=== PATIENT | male | born 1985 | race Caucasian/White ===

== ENCOUNTER 2017-03-08 19:36 | Emergency (ER) | payer SELFPAY ==
[~2017-03-08] VITALS: Ht 167.6 cm; Wt 71.0 kg
[2017-03-08 19:38] VITALS: BP 146/78; PULSE 86; RESP 16; TEMP 98.5; O2SAT 100
--- NOTE | 2017-03-08 20:40 | PD ---
HPI Chief Complaint: Skin Problem Time Seen by Provider: 20:27 Travel History International Travel<30 days: No Contact w/Intl Traveler<30days: No Traveled to known affect area: No History of Present Illness HPI Patient comes in complaining of abscesses right formerly first noticed 2 days ago. Patient states he it seemed to get bigger today after getting out of the shower. Patient states feels like there is a baseball growing out of his right forearm. Patient has pain is pressure-like in nature and radiates proximally. Patient denies anything making it better. Touching it or moving his arm makes the pain worse. Denies any fevers, nausea, vomiting, chest pain, or short of breath. Patient does admit to a distant history of IV drug use and last used approximately 2 years ago. Reports tetanus shot is up-to-date. PFSH Past Medical History Medical History: Denies Significant Hx Social History Alcohol Use: No Tobacco Use: Yes Substance Use: No (reformed ) Allergies-Medications (Allergen,Severity, Reaction): Coded Allergies: diclofenac (Unverified Allergy, Unknown, Hives, 03/08/17) etodolac (Unverified Allergy, Unknown, Hives, 03/08/17) flurbiprofen (Unverified Allergy, Unknown, Hives, 03/08/17) ibuprofen (Unverified Allergy, Unknown, Hives, 03/08/17) indomethacin (Unverified Allergy, Unknown, Hives, 03/08/17) ketoprofen (Unverified Allergy, Unknown, Hives, 03/08/17) ketorolac (Unverified Allergy, Unknown, Hives, 03/08/17) naproxen (Unverified Allergy, Unknown, Hives, 03/08/17) oxaprozin (Unverified Allergy, Unknown, Hives, 03/08/17) Reported Meds & Prescriptions Reported Meds & Active Scripts Active Keflex (Cephalexin) 500 Mg Cap 500 Mg PO Q8H Bactrim DS (Sulfamethoxazole-Trimethoprim) 800-160 Mg Tab 1 Tab PO BID Review of Systems Except as stated in HPI: all other systems reviewed are Neg Physical Exam Narrative GENERAL: Well-developed, well nourished, in no acute distress, and non-ill appearing. SKIN: Fluctuant tender abscess noted right forearm volar aspect. No crepitus or streaking. HEAD: Atraumatic. Normocephalic. EYES: Pupils equal and round. EOMI. No scleral icterus. No injection or drainage. ENT: No nasal bleeding or discharge. Mucous membranes pink and moist. NECK: Trachea midline. Supple. No nuclear rigidity. RESPIRATORY: No accessory muscle use. No respiratory distress. MUSCULOSKELETAL: No obvious deformities. No clubbing. No cyanosis. No edema. Full range of motion. NEUROLOGICAL: Awake and alert. No obvious cranial nerve deficits. Motor grossly within normal limits. Normal speech. PSYCHIATRIC: Appropriate mood and affect; insight and judgment normal. Data Data Last Documented VS Vital Signs Date Time Temp Pulse Resp B/P (MAP) Pulse Ox O2 Delivery O2 Flow Rate FiO2 03/08/17 19:38 98.5 86 16 146/78 (100) 100 Room Air Orders Orders Wound Culture And Gram Stain (03/08/17 20:35) Lidocai-Epi 2%-1:100,000 Inj (Xylocaine- (03/08/17 20:45) Sulfamet-Trimeth Ds 800-160 Mg (Bactrim (03/08/17 20:45) MDM Medical Decision Making Medical Screen Exam Complete: Yes Emergency Medical Condition: Yes Differential Diagnosis Abscess, cellulitis, folliculitis, gangrene, other Narrative Course The patient has no evidence of significant cellulitis. There is no evidence of necrotizing fasciitis/ Bertrand at this time. The patient will be discharged on antibiotics. The patient was given signs and symptoms warnings for worsening infection, such as spreading of redness, increasing pain, and/or swelling, associated heat, or fever or feels worse, and instructed to return immediately if these signs or symptoms worsen. The patient is to return in 2 days for recheck. Sooner if worsens or as needed. The patient agrees with plan. Patient in no obvious distress upon re-evaluation. Patient was asked if they wanted to speak to my attending, which the patient did not wish to do at this time. Any questions/concerns in reference to patient diagnosis/condition discussed and clarified prior to patient's discharge. Reinforced sheer importance of close follow up with patient's primary physician or primary care clinic. Instructed patient to return to ED immediately, if symptoms return/ worsen. Patient showed understanding of above instructions. Further instructions and recommendations were detailed in discharge paperwork. Patient ambulated without difficulty out of ED at discharge. Procedures Procedure Narrative INCISION AND DRAINAGE OF ABSCESS: Verbal consent was obtained. The area was prepped. A subcutaneous wheal of 2% Xylocaine with epi with a total number 2 mL was used to anesthetize the area. The area was properly anesthetized. A number 11 scalpel was used to make a 1-cm incision across the area of the abscess. The abscess was drained and irrigated with normal saline. Quarter inch iodoform packing was placed in the wound. Sterile dressing applied by nurse. Patient tolerated procedure well. Patient advised to return here in 2 days to have packing removed and wound rechecked. Patient verbalized understanding. Diagnosis Primary Impression: Abscess Referrals: [facility] Patient Instructions: Abscess (ED), Abscess Incision and Drainage (DC), General Instructions Additional Instructions: Follow-up with your primary care physician or return here in 2 days for recheck. Take all medication as prescribed. Apply warm compresses to affected area to facilitate drainage. Return to the emergency department if symptoms get worse. Med/Other Pt SpecificInfo: Prescription(s) given Scripts Cephalexin (Keflex) 500 Mg Cap 500 MG PO Q8H for Infection, #30 CAP 0 Refills Prov: Nini Gamez DO 03/08/17 Sulfamethoxazole-Trimethoprim (Bactrim DS) 800-160 Mg Tab 1 TAB PO BID for Infection, #20 TAB 0 Refills Prov: Nini Gamez DO 03/08/17 Disposition: 01 DISCHARGE HOME Condition: Stable Car Rubio Mar 08, 2017 20:40
[2017-03-08] MEDS ORDERED: LIDOCAINE 2%/EPINEPHrine 1:100,000 20ML MDV NERV BLOCK ONE (20:45)
[2017-03-08] MEDS ORDERED: SULFAMETHOXAZOLE-TRIMETHOPRIM DS 800-160 MG TAB PO ONE (20:45)
[2017-03-08] MEDS ORDERED: CEPH-460 PO (21:05)
[2017-03-08] MEDS ORDERED: BACT800T5 PO (21:05)
== END 2017-03-08 21:39 | disposition home or self-care (01) ==
LOC: NEPK 19:36
DX: L02.413 Cutaneous abscess of right upper limb (principal)
CPT/HCPCS: 10061; 86403; 87070; 87077; 87185; 87186; 87205